=== PATIENT | male | born 1945 | race Caucasian/White ===

== ENCOUNTER 2018-08-26 06:52 | Day surgery (SDC) | payer OTHER ==
[2018-08-22 15:38] VITALS: BMI 34.0
[~2018-08-26 06:52] MED LIST: LACTATED RINGERS 1,000 ML IV SCH
[2018-08-26 07:22] VITALS: TEMP 98.4
[2018-08-26 07:26] LABS: Glucose,Whole Blood 180 mg/dL (75-99)
[2018-08-26] MEDS ORDERED: LIDOCAINE 1% INJ 10MG/ML (20 ML MDV) ONE (08:08)
[2018-08-26] MEDS ORDERED: PROPOFOL 10 MG/ML 20 ML VIAL IV ONE (08:08)
[2018-08-26 08:42] VITALS: RESP 16
--- NOTE | 2018-08-26 08:43 | P.PCN ---
Date of Procedure: 08/26/18 Procedure(s) Performed: Procedure: Colonoscopy and polypectomy. Preoperative diagnosis: Screening for neoplasia. Postoperative diagnosis: 1. Sigmoid diverticulosis with no evidence of acute diverticulitis or strictures. 2. Two small sigmoid polyps in the vicinity of a diverticular orifice snared and retrieved by suction but no large polyps or cancer. Preparation: HalfLytely prep. Sedation: Was provided by anesthesia. Brief clinical history: The patient is a 73-year-old male who is scheduled for this evaluation for screening for neoplasia age being his risk factor. He had a colonoscopy more than 10 years ago and he believes he had a polyp removed. The patient has no abdominal complaints, bleeding or anemia. Procedure: With the patient on his left lateral decubitus position and after informed consent and adequate sedation, the perianal area was inspected and it did not show any fissures or fistulas. There were no masses felt on digital rectal examination. The Olympus CFH 190L video colonoscope was then inserted in the rectum in the usual fashion and advanced to the cecum. There were multiple diverticular orifices seen scattered in the sigmoid with no evidence of acute diverticulitis or strictures. At around 50 cm, in the sigmoid colon, there were 2 small polyps in the vicinity of a diverticular orifice which I snared and retrieved by suction. There were no large polyps or cancer. The mucosa appeared healthy. I retroflexed the endoscope in the rectum before the endoscope was withdrawn. The patient tolerated the procedure well. Plan: The patient was reassured. Discussed dietary measures. He will follow up with you as planned and I recommended repeat exam in 5 years.
[2018-08-26 08:56] VITALS: BP 122/66; PULSE 73
== END 2018-08-26 09:18 | disposition home or self-care (01) ==
LOC: ORWHC2ENDO 06:52
DX: Z12.11 Encounter for screening for malignant neoplasm of colon (principal); K63.5 Polyp of colon; K57.30 Diverticulosis of large intestine without perforation or abscess without bleeding; E11.9 Type 2 diabetes mellitus without complications; I10 Essential (primary) hypertension; E78.5 Hyperlipidemia, unspecified; M19.90 Unspecified osteoarthritis, unspecified site; Z79.84 Long term (current) use of oral hypoglycemic drugs; Z79.1 Long term (current) use of non-steroidal anti-inflammatories (NSAID); Z79.899 Other long term (current) drug therapy
CPT/HCPCS: 88305; 45385; J2001; J2704

== ENCOUNTER → 2019-10-23 | Outpatient (CLI) | payer OTHER | END | disposition home or self-care (01) | LOC: LABPAT 12:18 | PROVIDERS: ATTEND Orthopaedic Surgery | DX: Z01.818 Encounter for other preprocedural examination (principal); Z01.812 Encounter for preprocedural laboratory examination; M16.12 Unilateral primary osteoarthritis, left hip | CPT/HCPCS: 86850; 86900; 86901; 87070 ==

== ENCOUNTER 2019-11-03 07:28 | Inpatient (IN) | payer OTHER ==
[2019-10-29 11:25] VITALS: BMI 32.5
--- NOTE | 2019-11-02 09:08 | HP ---
HISTORY AND PHYSICAL CHIEF COMPLAINT: Left hip pain. HISTORY OF PRESENT ILLNESS: The patient is a 74-year-old retired gentleman who presents with progressive left hip pain for the past several years. It has worsened recently. He is having pain with any weightbearing activities. He notes he has been limping. He also has a difficult time getting up from a seated position. He has been taking meloxicam. He underwent right total hip arthroplasty in 2013. PAST MEDICAL HISTORY: Significant for type 2 diabetes, hypercholesterolemia, hypertension, and coronary artery disease along with arthritis. PAST SURGICAL HISTORY: Significant for right total hip arthroplasty. CURRENT MEDICATIONS: Amlodipine, aspirin, atorvastatin, glipizide, lisinopril, meloxicam, metformin. ALLERGIES: He denies drug allergies. FAMILY HISTORY: Family history is noncontributory. SOCIAL HISTORY: Significant for previous tobacco use. REVIEW OF SYSTEMS: Sixteen point review of systems otherwise reviewed and is noncontributory. PHYSICAL EXAMINATION: On examination, the patient is approximately 5 foot 9, 220 pounds of endomorphic habitus. HEENT exam is nonfocal. Neck is supple. Passive motion of the left hip, flexion 60 degrees, external rotation of the hip flexed 50 degrees, internal rotation -20 degrees with pain. Clinically, he does have some shortening of the right lower extremity compared to the left. His distal neurovascular exam appears intact in the left lower extremity. He does have an antalgic gait pattern. IMAGING: AP and lateral views of the left hip obtained in the office show severe osteoarthrosis with subchondral sclerosis and cystic changes of the femoral head and acetabulum. IMPRESSION: Left hip severe osteoarthrosis-symptomatic. RECOMMENDATIONS: I talked to the patient at length regarding his condition along with treatment options. At this point, he is quite limited because of pain related to his osteoarthrosis despite conservative measures. After thorough discussion, he opts to proceed with surgery. We will plan to proceed with left total hip arthroplasty utilizing a direct anterior approach. Risks and benefits were discussed at length in layman's terms. We will institute DVT prophylaxis postoperatively. MMODL / IJN: [id number] /
[~2019-11-03 07:28] MED LIST changes: +ACETAMINOPHEN TAB 500 MG TAB PO ONE; +HEPARIN SODIUM,PORCINE 5,000 UNIT/ML 1 ML VIAL SQ ONE; -LACTATED RINGERS 1,000 ML IV SCH; +LIDOCAINE 1% (10MG/ML) FOR IV START INTRADERMA PRN; +MELOXICAM 7.5 MG TAB PO ONE; +ONDANSETRON 4 MG/2 ML VIAL IVP ONE; +TRANEXAMIC ACID 1,000 MG in SODIUM CHLORIDE 0.9% 100 ML IVPB ONE
[2019-11-03] MEDS ORDERED: ONDANSETRON 4 MG/2 ML VIAL ONE (08:23)
[2019-11-03] MEDS ORDERED: ACETAMINOPHEN TAB 500 MG TAB ONE (08:23)
[2019-11-03] MEDS ORDERED: LACTATED RINGERS 1,000 ML IV ONE (08:26)
[2019-11-03 08:27] LABS: Glucose,Whole Blood 167 mg/dL (75-99)
[2019-11-03] MEDS ORDERED: ceFAZolin 3,000 MG in SODIUM CHLORIDE 0.9% IRRIGATIO 3,000 ML IRRIGATION ONE (10:40)
[2019-11-03] MEDS ORDERED: traMADol 50 MG TAB PO PRN (12:00)
[2019-11-03] MEDS ORDERED: ACETAMINOPHEN TAB 325 MG TAB PO PRN (12:00)
[2019-11-03] MEDS ORDERED: HYDROmorphone 0.5 MG/0.5 ML SYRINGE IVP PRN (12:00)
[2019-11-03] MEDS ORDERED: NALOXONE 0.4 MG/ML 1 ML VIAL IV PRN (12:00)
[2019-11-03] MEDS ORDERED: MAGNESIUM HYDROXIDE 2,400 MG/10 ML CUP PO PRN (12:00)
[2019-11-03] MEDS ORDERED: HYDROcodone/APAP 5-325MG 1 EACH TAB PO PRN (12:00)
[2019-11-03] MEDS ORDERED: ONDANSETRON 4 MG/2 ML VIAL IVP PRN (12:00)
[2019-11-03] MEDS ORDERED: MIDAZOLAM 2 MG/2 ML VIAL ONE (12:05)
[2019-11-03] MEDS ORDERED: fentaNYL (PF) 50 MCG/ML 2 ML AMP ONE (12:05)
[2019-11-03] MEDS ORDERED: PROPOFOL 10 MG/ML 20 ML VIAL IV ONE (12:05)
[2019-11-03] MEDS ORDERED: TRANEXAMIC ACID 1,000 MG/10 ML VIAL ONE (12:05)
[2019-11-03] MEDS ORDERED: SODIUM CHLORIDE 0.9% 100 ML BAG ONE (12:05)
--- NOTE | 2019-11-03 12:25 | P.OP ---
Date of Procedure: 11/03/19 Preoperative Diagnosis: Left hip severe osteoarthrosis Postoperative Diagnosis: Same Procedure(s) Performed: Left total hip arthroplastypress-fitanterior approach Implants: Depuy Corail size 12 standard press-fit femoral stem, 36 mm +1.5 cobalt chrome femoral head, 54 mm Closplint acetabular shell with neutral polyethylene liner. Anesthesia: spinal Surgeon: Henrique Rogel [employer]ing Bindery Assistant #1: Kobi Martinez Estimated Blood Loss (ml): 350 Pathology: other (Femoral head) Condition: stable Disposition: PACU Indications for Procedure: Patient is a 74-year-old male presents with progressive left hip pain secondary Jessica arthrosis despite conservative measures. A discussion of the risks and benefits of operative intervention versus continued conservative measures was made with patient. He opted to proceed with surgery. Operative risks to include infection, neurovascular injury, development of blood clots, possible fracture, possible leg length discrepancy, possible instability need for subsequent procedures was discussed. Informed consent was obtained. Operative Findings: As below Description of Procedure: The patient was brought to the operating room, and after induction of spinal anesthesia was placed supine on the Avelina table. Positioning was checked with fluoroscopy. The left hip was then prepped and draped in a normal fashion. A 12 cm incision was then made starting 2 fingerbreadths distal and 3 finger breaths posterior to the ASIS in line with the proximal femur. The skin was incised sharply. Subcutaneous tissues were divided sharply. Electrocautery was used for hemostasis. The fascia was split in line with skin incision. The interval between the sartorius and tensor fascia nicole was then bluntly developed. The posterior fascia was opened with electrocautery. The lateral circumflex vessels were identified and cauterized prior to sectioning. A retractor was placed along the superior femoral neck as well as the anterior acetabular rim. A wide capsulotomy was performed. The neck cut was then made at a 45 angle to the shaft approximately 1 1/2 cm above the level of the lesser trochanter. The head was extracted. Attention was then paid towards preparing the acetabular. Anterior and posterior retractors were placed. The remaining capsular labral tissue sharply debrided clearly defining the acetabular margins. I began reaming with a 47 mm reamer taking care to initially medialize then reaming at 45 of abduction and 20 of anteversion. Sequential reaming is performed up to 53 mm. A trial 54 mm acetabular shell was inserted in the same orientation and was fully seated. There was good rim fit and stability. Positioning was checked with fluoroscopy. The final 54 mm acetabular shell was inserted again at 45 of abduction and 20 of anteversion. This was fully seated. There was good rim fit and stability. Again fluoroscopy was used to check the adequacy of placement. A neutral polyethylene liner was gently impacted. Care was taken to avoid any soft tissue interposition. Pulsatile lavage was utilized. Attention was then paid towards preparing the proximal femur. The central region was cleared of soft tissue. A canal finder was used to find the femoral canal. Sequential broaching was performed up to size 12 taking care to lateralize proximally. A calcar mill was used to fashion the medial calcar. There was good rotational stability. A standard neck along with a 36 mm +1.5 head was placed. The hip was gently reduced. Fluoroscopy was used to check the adequacy of positioning along with leg lengths. I felt both were good. The hip was gently dislocated. The trial components were removed. The final size 12 collared standard press-fit femoral stem was inserted parallel to the posterior cortex. This was fully seated and there was good rotational stability. A 36 mm 1.5 head was placed. This was gently impacted. The hip was then gently reduced. Final fluoroscopic view showed adequate placement implant along with jew of leg length. Stability was checked with 80 of external rotation and 60 of extension of the left hip. The wound was irrigated with sterile lavage. The fascia was closed with running 0 Vicryl suture. There was minimal drainage therefore a deep drain was not placed. The second dose of IV TXA was given. The subcutaneous tissues were reapproximated interrupted 2-0 Vicryl sutures. The skin was reapproximated with 3-0 subcuticular strata fix suture. Skin tape and adhesive was applied. A sterile dressing was applied. The patient was then awoken from sedation and transferred to recovery room in good condition. Blood loss was estimated at 350 mL. No complications were incurred. Sponge and needle counts were correct at the end of the case. Dayton LAGUNAS assisted during the major components is case to include exposure, bone resection, implantation, and closure.
[2019-11-03] MEDS: HYDROmorphone 0.5 MG/0.5 ML SYRINGE IVP PRN ×5 (12:29→14:22)
[2019-11-03] MEDS ORDERED: diphenhydrAMINE 50 MG/ML 1 ML VIAL IVP ONE (12:37)
[2019-11-03 12:53] LABS: Glucose,Whole Blood 198 mg/dL (75-99)
--- NOTE | 2019-11-03 13:04 | XR ---
EXAMINATION TYPE: XR Hip Limited LT DATE OF EXAM: 11/03/2019 CLINICAL HISTORY: Left hip arthroplasty TECHNIQUE: Single AP portable view of left hip is obtained immediately postoperatively. COMPARISON: None. FINDINGS: Metallic hardware from left total hip arthroplasty is seen and appears satisfactory in alig nment and position. There is evidence of recent surgery with subcutaneous gas noted laterally. No u nexpected radiopaque foreign body. IMPRESSION: Metallic hardware from left total hip arthroplasty is satisfactory in position.
[2019-11-03] MEDS: LACTATED RINGERS 1,000 ML IV SCH (14:39)
[2019-11-03] MEDS: HYDROcodone/APAP 7.5-325MG 1 EACH TAB PO PRN ×2 (15:32→20:25)
--- NOTE | 2019-11-03 16:52 | FL ---
EXAMINATION TYPE: FL guidance operating room DATE OF EXAM: 11/03/2019 CLINICAL HISTORY: Left hip surgery TECHNIQUE: Fluoroscopy. COMPARISON: None. FINDINGS: Fluoroscopic guidance was provided during procedure by for performing physician in the ope rating room. A total of 29 seconds of fluoroscopic time was utilized during the procedure and no spo t images were acquired. Please see operative report by performing physician for additional details. IMPRESSION: As Above.
--- NOTE | 2019-11-03 16:55 | XR ---
EXAMINATION TYPE: XR Hip Limited LT DATE OF EXAM: 11/03/2019 CLINICAL HISTORY: Left hip arthroplasty TECHNIQUE: Fluoroscopy. COMPARISON: None. FINDINGS: Fluoroscopic guidance was provided during procedure by performing physician in the operati ng room. No fluoroscopic time was utilized during the procedure. 1 spot images was acquired. Please see operative report by performing physician for additional details. IMPRESSION: As Above.
[2019-11-03] MEDS: INSULIN ASPART (NovoLOG) 100 UNIT/ML VIAL SQ SCH ×2 (17:30→20:25)
[2019-11-03] MEDS: carvediloL 6.25 MG TAB PO SCH (17:32)
[2019-11-03 20:22] LABS: Glucose,Whole Blood 315 mg/dL (75-99)
[2019-11-03] MEDS: glipiZIDE 10 MG TAB PO SCH (20:25)
[2019-11-03] MEDS: metFORMIN 500 MG TAB PO SCH (20:26)
--- NOTE | 2019-11-03 20:52 | CONS ---
CONSULTATION DATE OF SERVICE: 11/03/2019 REASON FOR CONSULTATION: Advice regarding diabetes and other medical issues, requested by Dr. Rogel. HISTORY OF PRESENT ILLNESS: This 74-year-old gentleman with a past medical history of diabetes mellitus, hyperlipidemia, hypertension, DJD, being followed by Dr. Decker in the [facility], was admitted after left total hip joint arthroplasty. There is no history of any fever, rigors or chills. No history of chest pain or palpitations, headache of loss of consciousness. The patient is complaining of hip pain postoperatively. PAST MEDICAL HISTORY: History of diabetes mellitus, hypertension, hyperlipidemia, DJD. HOME MEDICATIONS: 1. Metformin 1000 mg b.i.d. 2. Glucotrol 10 mg b.i.d. 3. Norvasc 10 mg daily. 4. Multivitamins 1 p.o. daily. 5. Zestril 20 mg daily. 6. Coreg 6.25 mg b.i.d. 7. Lipitor 20 mg at bedtime. ALLERGIES: NONE. FAMILY HISTORY: History of cancer in the family. SOCIAL HISTORY: Occasional alcohol. Previous history of smoking. REVIEW OF SYSTEMS: ENT: No diminished hearing. No diminished vision. CARDIOVASCULAR SYSTEM: No angina, palpitations. RESPIRATORY SYSTEM: No cough, hemoptysis. GI: No nausea, vomiting. : No dysuria or retention. NERVOUS SYSTEM: No numbness, weakness. ALLERGY/IMMUNOLOGY: No asthma, hayfever. MUSCULOSKELETAL: As mentioned earlier. HEMATOLOGY/ONCOLOGY: No history of anemia. ENDOCRINE: Diabetes. CONSTITUTIONAL: As mentioned earlier. DERMATOLOGY: Negative. RHEUMATOLOGY: Negative. PSYCHIATRY: As mentioned earlier. PHYSICAL EXAMINATION: Patient alert and oriented x3. Pulse 102, blood pressure 102/63, respiration 20, temperature normal, pulse ox 96% on room air. HEENT: Conjunctivae normal. Oral mucosa moist. NECK: No jugular venous distention. No carotid bruit. No lymph node enlargement. CARDIOVASCULAR SYSTEM: S1, S2 muffled. No S3. No S4. RESPIRATORY SYSTEM: Breath sounds diminished at the bases. No rhonchi. No crackles. ABDOMEN: Soft, non-tender. No mass palpable. LEGS: Status post hip arthroplasty. NERVOUS SYSTEM: Higher functions as mentioned earlier. Moves all 4 limbs. No focal motor or sensory deficits. LYMPHATICS: No lymph node palpable in neck, axillae or groin. SKIN: No ulcer, rash, bleeding. JOINTS: No active deforming arthropathy. LABS: Glucose 167 and 198. Other labs are noted. ASSESSMENT: 1. Status post right total hip joint arthroplasty. 2. Diabetes mellitus, type 2. 3. Hyperlipidemia. 4. Hypertension. 5. History of degenerative joint disease. 6. Remote history of nicotine dependence. 7. FULL CODE. RECOMMENDATIONS AND DISCUSSION: In this 74-year-old gentleman who presented with multiple medical issues, we will monitor the patient closely, continue the current medications, continue with symptomatic treatment. Resume the home medications. Accu-Cheks before meals and at bedtime and insulin scale. Will follow the patient closely. Symptomatic treatment. DVT prophylaxis. The patient may be asked to follow up with the [facility] after discharge. Thank you, Dr. Rogel, for letting us participate in the care this patient. LEXI / RIKI: [id number] /
[2019-11-03] MEDS ORDERED: ATORVASTATIN 20 MG TAB PO SCH (21:00)
[2019-11-03] MEDS ORDERED: SENNOSIDES-DOCUSATE SODIUM 1 EACH TAB PO SCH (21:00)
[2019-11-04] MEDS: LACTATED RINGERS 1,000 ML IV SCH (06:37)
[2019-11-04] MEDS: INSULIN ASPART (NovoLOG) 100 UNIT/ML VIAL SQ SCH ×2 (07:51→12:10)
[2019-11-04 07:52] LABS: Glucose,Whole Blood 166 mg/dL (75-99)
[2019-11-04] MEDS: metFORMIN 500 MG TAB PO SCH (07:59)
[2019-11-04] MEDS: HYDROcodone/APAP 7.5-325MG 1 EACH TAB PO PRN ×2 (07:59→13:23)
[2019-11-04] MEDS: glipiZIDE 10 MG TAB PO SCH (07:59)
[2019-11-04] MEDS: carvediloL 6.25 MG TAB PO SCH (07:59)
[2019-11-04 08:17] VITALS: BP 119/59; PULSE 98; RESP 18; TEMP 98.1
[2019-11-04 08:44] LABS: Basophils % (A) 0 %; Eosinophils # (A) 0.1 k/uL (0-0.7); Eosinophils % (A) 1 %; HCT 29.9 % (39.0-53.0); HGB 9.7 gm/dL (13.0-17.5); Lymphocytes # (A) 1.3 k/uL (1.0-4.8); Lymphocytes % (A) 16 %; MCHC 32.4 g/dL (31.0-37.0); MCV 89.5 fL (80.0-100.0); Mean Platelet Volume 7.9; Monocytes # (A) 0.6 k/uL (0-1.0); Monocytes % (A) 7 %; Neutrophils # (A) 6.3 k/uL (1.3-7.7); Neutrophils % (A) 76 %; Platelet Count 168 k/uL (150-450); RBC 3.34 m/uL (4.30-5.90); RDW 14.1 % (11.5-15.5); WBC 8.2 k/uL (3.8-10.6)
[2019-11-04 08:48] LABS: African American GFR (CKD) >90 (>60 ml/min/1.73 sqM); Anion Gap 9 mmol/L; Blood Urea Nitrogen 20 mg/dL (9-20); Calcium 8.6 mg/dL (8.4-10.2); Carbon Dioxide 23 mmol/L (22-30); Chloride 106 mmol/L (98-107); Glucose 147 mg/dL (74-99); Non-African American GFR(CKD) 85 (>60 ml/min/1.73 sqM); Potassium 4.8 mmol/L (3.5-5.1); Sodium 138 mmol/L (137-145)
[2019-11-04] MEDS ORDERED: lisinopriL 20 MG TAB PO SCH (09:00)
[2019-11-04] MEDS ORDERED: FAMOTIDINE 20 MG TAB PO SCH (09:00)
[2019-11-04] MEDS ORDERED: amLODIPine 10 MG TAB PO SCH (09:00)
[2019-11-04] MEDS ORDERED: ENOXAPARIN 40 MG/0.4 ML SYRINGE SQ SCH (09:00)
[2019-11-04] MEDS ORDERED: MULTIVITAMINS, THERA 1 EACH TAB PO SCH (09:00)
[2019-11-04 11:35] LABS: Glucose,Whole Blood 151 mg/dL (75-99)
--- NOTE | 2019-11-04 13:09 | P.PN ---
Subjective Progress Note Date: 11/04/19 Principal diagnosis: Status post left total hip arthroplasty Patient notes he is doing well. He completed therapy. He notes mild pain. Objective - Vital Signs Vital signs: Vital Signs Temp 98.1 F 11/04/19 07:00 Pulse 98 11/04/19 07:00 Resp 18 11/04/19 07:00 BP 119/59 11/04/19 07:00 Pulse Ox 94 L 11/04/19 07:00 Intake & Output 11/03/19 11/04/19 11/04/19 18:59 06:59 18:59 Intake Total 901 50 Output Total 350 Balance 551 50 Weight 97.2 kg Intake: IV 901 Intake, IV Titration 50 Amount ceFAZolin 2 gm In Sodium 50 Chloride 0.9% 50 ml @ 100 mls/hr IVPB Q8H CHASE Rx#: [id number] Output: Estimated Blood Loss 350 Other: Voiding Method Toilet # Voids 2 - Exam Left hip incision clean/dry/intact Homans negative left lower extremity Neurovascular exam intact left lower extremity - Labs CBC & Chem 7: 11/04/19 07:25 11/04/19 07:25 Labs: Abnormal Lab Results - Last 24 Hours (Table) 11/03/19 11/04/19 11/04/19 Range/Units 20:14 07:25 07:25 RBC 3.34 L (4.30-5.90) m/uL Hgb 9.7 L (13.0-17.5) gm/dL Hct 29.9 L (39.0-53.0) % Glucose 147 H (74-99) mg/dL POC Glucose (mg/dL) 315 H (75-99) mg/dL 11/04/19 11/04/19 Range/Units 07:31 11:34 RBC (4.30-5.90) m/uL Hgb (13.0-17.5) gm/dL Hct (39.0-53.0) % Glucose (74-99) mg/dL POC Glucose (mg/dL) 166 H 151 H (75-99) mg/dL Assessment and Plan Assessment: Status post left total hip arthroplasty Plan: Discharge home. Follow-up 2 weeks. Weightbearing as tolerated with walker. Discharge instructions as written. Time with Patient: Less than 30
--- NOTE | 2019-11-04 17:29 | PN ---
PROGRESS NOTE DATE OF SERVICE: 11/04/2019 This 74-year-old gentleman who was admitted after right total hip joint arthroplasty is monitored closely. No chest pain. No palpitations. No fever. PHYSICAL EXAMINATION: Alert and oriented x3, pulse 98, blood pressure 119/50, respiration 18, temperature 98.1, pulse ox 94% on room air. HEENT: Conjunctivae normal. NECK: No jugular venous distension. CARDIOVASCULAR SYSTEM: S1, S2 muffled. RESPIRATORY SYSTEM: Breath sounds diminished at the bases, no rhonchi, no crackles. ABDOMEN: Soft. LEGS: Status post surgery. NERVOUS SYSTEM: No focal deficits. LABS: Accu-Cheks are 315, 147 and 66. Hemoglobin 9.7, ASSESSMENT: 1. Status post right total knee joint arthroplasty. 2. Diabetes mellitus type 2. 3. Hyperlipidemia. 4. Hypertension. 5. History of degenerative joint disease. 6. Remote history of nicotine dependence. 7. FULL CODE. RECOMMENDATION: Recommend to continue current medications, symptomatic treatment. Resume the home medications after discharge and follow with primary physician in 1-2 weeks and incentive spirometry. The rest of the recommendations per Orthopedic surgery further recommendations to follow. MMODL / IJN: [id number] /
--- NOTE | 2019-11-05 08:00 | P.DS ---
Providers Date of admission: 11/03/19 07:55 Expected date of discharge: 11/05/19 Attending physician: Henrique Rogel Consults: 11/03/19 12:00 Consult Physician Routine Consulting Provider: Reyes Cole Consult Reason/Comments: medical management Do you want consulting provider notified?: Yes Primary care physician: [facility] Hospital Course: Date of admission: 11/03/2019 Date of discharge: 11/04/2019 Admission diagnosis: Status post direct anterior left total hip arthroplasty Discharge diagnosis: Same Attending physician: Dr. Rogel Surgical procedures: Direct anterior left total hip arthroplasty Brief history: Patient is a a 74-year-old male with a history of progressive primary left hip osteoarthritis. At this point patient has failed conservative treatment measures and has opted to proceed with a elective direct anterior left total hip arthroplasty. Hospital course: Details of patient's surgery can be found in operative report. Patient tolerated the procedure well and was subsequently transported to orthopedic floor. Patient's orthopeidc and medical care was provided daily. Patient had daily laboratory tests performed for evaluation of overall blood counts . Patient had daily physical therapy to include strengthening range of motion as well as education with walker ambulation. Patient was treated with Lovenox for their postoperative DVT prophylaxis during their inpatient stay. Patient was noted to have a relatively uneventful postoperative course. Patient reported satisfactory pain control with oral pain medications by postoperative day 0. Patient showed satisfactory progress with physical therapy. Patient moved steadily through the program and had no difficulty meeting the goals by postoperative day 1. Given patient's otherwise satisfactory course and having met physical therapy goals, plan is to discharge patient home on postoperative day 1. Discharge condition/disposition: Patient will be discharged home in stable condition. Discharge medications: Instructions are given on resumption of patient's normal daily medications per primary care recommendation, in addition patient will be prescribed [place] 7.5 mg/325 mg, Xarelto 10mg. Discharge instructions: 1. Wound care and infection precautions, keep incision dry and covered while showering, no lotions, creams, moisturizers. No soaking, tubs, pools, hottubs. Do not scrub over the incision. 2. Weight-bear as tolerated with walker / cane until follow-up. 3. Ice and elevate when necessary. Do not exceed 20 minutes per hour with ice pack. 4. Utilize compression sleeve until seen at first follow up appointment. 5. Visiting nursing care. 6. Home physical therapy 7. Pain meds and anticoagulants per prescription. 8. Pain medication has potential to cause constipation. Increase oral fluid and fiber intake. Contact primary care provider if you have not had a bowel movement within 48 hours after discharge 9. No anti-inflammatory medication until discussed at first post operative visit, this including Motrin, Aleve, Mobic, Diclofenac 10. Follow up in office at 2 weeks postop with Dayton Martinez PA-C 11. Follow up with your primary care doctor 7-10 days after discharge. 12. Contact [facility] with any questions, . Procedures: direct anterior left total hip arthroplasty Patient Condition at Discharge: Good Plan - Discharge Summary Discharge Rx Participant: Yes New Discharge Prescriptions: New HYDROcodone/APAP 7.5-325MG [[place] 7.5-325] 1 tab PO Q4-6H PRN #28 tab PRN Reason: Pain Rivaroxaban [Xarelto] 10 mg PO DAILY #14 tab No Action metFORMIN HCL 1,000 mg PO BID glipiZIDE [Glucotrol] 10 mg PO BID Atorvastatin [Lipitor] 20 mg PO HS lisinopriL [Zestril] 20 mg PO DAILY carvediloL [Coreg] 6.25 mg PO BID amLODIPine [Norvasc] 10 mg PO DAILY Multivitamins, Thera [Multivitamin (formulary)] 1 tab PO DAILY HYDROcodone/APAP 7.5-325MG [Blo[place] 7.5-325] 1 tab PO Q4H PRN PRN Reason: Pain Rivaroxaban [Xarelto] 10 mg PO DAILY Discharge Medication List Atorvastatin [Lipitor] 20 mg PO HS 08/22/18 [History] Multivitamins, Thera [Multivitamin (formulary)] 1 tab PO DAILY 08/22/18 [History] amLODIPine [Norvasc] 10 mg PO DAILY 08/22/18 [History] carvediloL [Coreg] 6.25 mg PO BID 08/22/18 [History] glipiZIDE [Glucotrol] 10 mg PO BID 08/22/18 [History] lisinopriL [Zestril] 20 mg PO DAILY 08/22/18 [History] metFORMIN HCL 1,000 mg PO BID 08/22/18 [History] HYDROcodone/APAP 7.5-325MG [[place] 7.5-325] 1 tab PO Q4-6H PRN #28 tab 11/04/19 [Rx] HYDROcodone/APAP 7.5-325MG [[place] 7.5-325] 1 tab PO Q4H PRN 11/04/19 [History] Rivaroxaban [Xarelto] 10 mg PO DAILY 11/04/19 [History] Rivaroxaban [Xarelto] 10 mg PO DAILY #14 tab 11/04/19 [Rx] Follow up Appointment(s)/Referral(s): Kobi Martinez PAC [PHYSICIAN SUPERINTENDENT COMMUNICATIONS] - 11/18/19 3:40 pm [facility]inic [Primary Care Provider] - 1 Week (office will call with appointment time.) Patient Instructions/Handouts: Total Hip Replacement (DC) Activity/Diet/Wound Care/Special Instructions: [facility] questions regarding [facility] care[facility] #[phone]. Orthopedic Discharge Instructions: 1. Wound care and infection precautions, keep incision dry and covered while showering, no lotions, creams, moisturizers. No soaking, pools, hot tubs. Do not scrub over incision. 2. Weight-bear as tolerated with walker / cane until follow-up. 3. Ice and elevate when necessary. Do not exceed 20 minutes per hour with ice pack. 4. Utilize compression sleeve until seen at first follow up appointment. 5. Pain meds and anticoagulants per prescription. 6. Pain medication has potential to cause constipation. Increase oral fluid and fiber intake. Contact primary care provider if you have not had a bowel movement within 48 hours after discharge. 7. No anti-inflammatory medication until discussed at first post operative visit, this including Motrin, Aleve, Mobic, Diclofenac. 8. Follow up in office at 2 weeks postop with Dayton Martinez PA-C 9. Follow up with your primary care doctor 7-10 days after discharge. 10. Contact [facility] with any questions, . Discharge Disposition: HOME WITH HOME HEALTH SERVICES
== END 2019-11-04 15:00 | disposition home health service (06) | DRG 470 ==
LOC: 2ORMAIN 07:55 → 4SSUR 14:20
PROVIDERS: ADMIT Orthopaedic Surgery; ATTEND Orthopaedic Surgery
PROC: 0SRB02A Replacement of Left Hip Joint with Metal on Polyethylene Synthetic Substitute, Uncemented, Open Approach (ICD-10-PCS; principal; 2019-11-03 09:50)
DX: M16.12 Unilateral primary osteoarthritis, left hip (principal); E66.9 Obesity, unspecified; E11.9 Type 2 diabetes mellitus without complications; E78.00 Pure hypercholesterolemia, unspecified; E78.2 Mixed hyperlipidemia; I10 Essential (primary) hypertension; L40.9 Psoriasis, unspecified; N52.9 Male erectile dysfunction, unspecified; I25.10 Atherosclerotic heart disease of native coronary artery without angina pectoris; H91.93 Unspecified hearing loss, bilateral; Z68.31 Body mass index [BMI] 31.0-31.9, adult; Z96.651 Presence of right artificial knee joint; Z96.641 Presence of right artificial hip joint; Z87.891 Personal history of nicotine dependence; Z79.84 Long term (current) use of oral hypoglycemic drugs; Z79.899 Other long term (current) drug therapy; Z80.9 Family history of malignant neoplasm, unspecified
CPT/HCPCS: 73501; 80048; 85025; 88300